=== PATIENT | female | born 1960 | race Caucasian/White ===

== ENCOUNTER 2018-01-02 13:57 | Inpatient (IN) ==
[2018-01-02] MEDS ORDERED: Aspirin 81 MG TAB.CHEW PO ONE (14:04)
[2018-01-02] MEDS ORDERED: *HR* Heparin 5,000 UNIT/ML VIAL ONE (14:07)
[2018-01-02] MEDS ORDERED: *HR* Heparin 5,000 UNIT/ML VIAL IVP PRN ×2 (14:07)
[2018-01-02] MEDS ORDERED: *HR* Heparin 5,000 UNIT/ML VIAL IVP ONE (14:07)
[2018-01-02] MEDS ORDERED: *HR* Ticagrelor 90 MG TABLET ONE (14:07)
[2018-01-02] MEDS ORDERED: Aspirin 81 MG TAB.CHEW ONE (14:07)
[2018-01-02] MEDS ORDERED: 0.9 % Sodium Chloride 1,000 ML ONE ×4 (14:07→17:31)
[2018-01-02] MEDS ORDERED: *HR* Ticagrelor 90 MG TABLET PO ONE (14:09)
--- NOTE | 2018-01-02 14:13 | Emergency Department Note ---
Disposition Clinical Impression: STEMI (ST elevation myocardial infarction) Qualifiers: Involved coronary artery: other inferior wall coronary artery Qualified Code(s) : I21.19 - ST elevation (STEMI) myocardial infarction involving other coronary artery of inferior wall Disposition: Admitted As Inpatient Condition: Good Chest Pain HPI - General Chief Complaint: ED Chest Pain Stated Complaint: STEMI from UC Time Seen by Provider: 01/02/18 14:04 Source: patient, family Limitations: no limitations Vital Signs Reviewed: Yes Nursing Notes Reviewed: Yes - History of Present Illness HPI Narrative: Patient presents today from urgent care. Patient was therefore evaluation of chest pain. Patient was diagnosed with STEMI. The patient refused transfer by squad. The patient's chest pain started last night. Describes a heaviness that is worse with deep inspiration. Chest pain is worse when she walks. Associated shortness of breath. Patient rates pain as 9 out of 10. Severity scale (1-10): 9 - Related Data Home Medications Medication Instructions Recorded Confirmed Aspirin 325 mg PO DAILY 01/02/18 01/02/18 Clopidogrel [Plavix] 75 mg PO DAILY 01/02/18 01/02/18 Cyclobenzaprine [Flexeril] 10 mg PO TID 01/02/18 01/02/18 Montelukast [Singulair] 10 mg PO DAILY 01/02/18 01/02/18 Oxycodone HCl/Acetaminophen 1 tab PO Q6H PRN 01/02/18 01/02/18 [Percocet 5-325 mg Tablet] Simvastatin [Zocor] 10 mg PO QPM 01/02/18 01/02/18 Bossman's Wort 1 tab PO DAILY 01/02/18 Allergies Allergy/AdvReac Type Severity Reaction Status Date / Time No Known Allergies Allergy Verified 01/02/18 13:01 Review of Systems: CONSTITUTIONAL: No weight loss, fever, chills, weakness or fatigue. HEENT: Eyes: No visual changes. . SKIN: No rash or itching. CARDIOVASCULAR: Chest pain and pressure RESPIRATORY: Shortness of breath GASTROINTESTINAL: Decreased appetite and nausea GENITOURINARY: No burning on urination or hematuria. NEUROLOGICAL: No headache, dizziness, syncope, MUSCULOSKELETAL: No back pain Chest Pain PMH - Past Medical History Medical history: Reports: asthma, COPD, hyperlipidemia - Social History Smoking Status: Current every day smoker Alcohol use: Reports: none Drug use: Reports: none Physical Exam General: Mild distress secondary to pain Head: Normocephalic Atraumatic Eyes: PERRL, EOMI ENT: Airway patent, no stridor Neck: supple, no meningismus Chest: Lungs clear to auscultation bilateral Cardiac: Regular rhythm Abdomen: soft, nontender, nondistended; no guarding, rebound, or tenderness to percussion Musculoskeletal: Calves symmetric, nontender, no palpable cord Skin: No rash, normal skin tone Neuro: Awake alert and appropriate. - General Limitations: no limitations General appearance: alert, in no apparent distress Course - Reevaluation(s) Reevaluation #1: Patient seen and evaluated at bedside medially upon arrival. Patient with ST elevation in 2 and aVF as well as V3 through V6. Depression in V2. We will discuss with interventionalists. - Consultations Consultation #1: STEMI alert called. Immediate call back by interventionalists. Discussed EKG changes. Aspirin are to be given. Berlinta and heparin will be given. Patient will be taken to [facility]. Vital Signs Temperature 98.6 F 01/02/18 13:59 Pulse Rate 119 01/02/18 13:59 Respiratory Rate 18 01/02/18 13:59 Blood Pressure 115/92 01/02/18 13:59 O2 Sat by Pulse Oximetry 95 01/02/18 13:59 Temperature 97.7 F 01/02/18 16:03 Pulse Rate 74 01/02/18 17:58 Respiratory Rate 12 01/02/18 17:58 Blood Pressure 102/73 01/02/18 17:58 O2 Sat by Pulse Oximetry 97 01/02/18 17:58 Oxygen Delivery Oxygen Delivery Room Air Chest Pain - Medical Records Medical records reviewed: Yes I reviewed the patient's medical records. - Lab Data Lab results reviewed: Yes I reviewed the patient's lab results. Result diagrams: 01/02/18 14:08 01/02/18 14:08 Lab Results 01/02/18 01/02/18 01/02/18 Range/Units 14:08 14:08 14:08 WBC 19.1 H (4.3-11.1) K/mcL RBC 4.13 (3.82-4.97) M/mcL Hgb 15.9 H (11.5-15.4) g/dL Hct 45.9 H (35.3-44.9) % MCV 111.1 H (83.0-100.0) fL MCH 38.5 H (28.0-33.3) pg MCHC 34.6 (31.6-35.5) g/dL RDW 16.0 H (11.5-14.5) % Plt Count 311 (140-400) K/mcL MPV 11.3 (9.4-12.4) fL Immature Gran % 0.8 (0-4) % Seg Neutrophils % 70.4 % Lymphocytes % 17.7 % Monocytes % 10.3 % Eosinophils % 0.2 % Basophils % 0.6 % Neutrophils # 13.5 H (1.6-8.9) K/mcL Lymphocytes # 3.4 (0.6-4.6) K/mcL Monocytes # 2.0 H (0.0-1.3) K/mcL Eosinophils # 0.0 (0.0-0.6) K/mcL Basophils # 0.1 (0.0-0.2) K/mcL Nucleated RBCs/100 WBC 0.1 H (0) /100 WBC Platelet Estimate Normal (Normal) Anisocytosis 1+ A (Not Present) Macrocytosis Present A (Not Present) PT 13.1 H (9.4-12.1) Seconds INR 1.2 APTT 26.6 (26.0-36.0) Seconds Sodium 135 L (136-145) mEq/L Potassium 3.6 (3.5-5.1) mEq/L Chloride 98 (98-107) mEq/L Carbon Dioxide 29 (23-29) mEq/L BUN 8 (6-20) mg/dL Creatinine 0.70 (0.60-1.20) mg/dL Est GFR ( Amer) > 60 (> 60) Est GFR (Non-Af Amer) > 60 (> 60) BUN/Creatinine Ratio 11 (6-26) Glucose 129 H (70-105) mg/dL Calculated Osmolality 280 (280-300) Calcium 9.9 (8.6-10.3) mg/dL Troponin I 4.25 H* (< 0.04) ng/mL - Radiology Data Radiology results reviewed: Yes I reviewed the patient's radiology results. - EKG Data EKG attestation: Yes I reviewed and interpreted this EKG. EKG results narrative: EKG with sinus rhythm and ST elevations to leads III and aVF of greater than [address] segment elevations V3 through V6 with T-wave depression in V 2.
[2018-01-02] MEDS ORDERED: Heparin 25,000 UNIT/500 ML D5W 25,000 UNIT/500 ML BAG IVC SCH (14:15)
[2018-01-02 14:25] LABS: Basophils # 0.1 K/mcL (0.0-0.2); Basophils % 0.6 %; Eosinophils % 0.2 %; Hematocrit 45.9 % (35.3-44.9); Hemoglobin 15.9 g/dL (11.5-15.4); Immature Granulocytes % 0.8 % (0-4); Lymphocytes # 3.4 K/mcL (0.6-4.6); Lymphocytes % 17.7 %; Mean Corpuscular HGB Conc 34.6 g/dL (31.6-35.5); Mean Corpuscular Hemoglobin 38.5 pg (28.0-33.3); Mean Corpuscular Volume 111.1 fL (83.0-100.0); Mean Platelet Volume 11.3 fL (9.4-12.4); Monocytes % 10.3 %; Neutrophils # 13.5 K/mcL (1.6-8.9); Nucleated Red Blood Cells 0.1 /100 WBC (0); Platelet Count 311 K/mcL (140-400); Red Blood Count 4.13 M/mcL (3.82-4.97); Segmented Neutrophils % 70.4 %
[2018-01-02] MEDS ORDERED: Nitroglycerin 1,000 MCG/10 ML VIAL IV ONE (14:31)
[2018-01-02] MEDS ORDERED: *HR* Heparin 10,000 UNIT/10 ML VIAL ONE (14:31)
[2018-01-02] MEDS ORDERED: *HR* Midazolam HCl 5 MG/5 ML VIAL IVP ONE (14:31)
[2018-01-02] MEDS ORDERED: ISOVUE-370 200 ML INFUS..BTL IV ONE (14:31)
[2018-01-02] MEDS ORDERED: Heparin 1,000 UNITS/500 mL 500 ML ONE (14:31)
[2018-01-02 14:37] LABS: INR 1.2; Prothrombin Time 13.1 Seconds (9.4-12.1)
[2018-01-02 14:40] LABS: Activated Partial Thrombo Time 26.6 Seconds (26.0-36.0)
[2018-01-02 14:43] LABS: Anisocytosis 1+ (Not Present); Macrocytosis Present (Not Present); Platelet Estimate Normal (Normal)
[2018-01-02 14:45] LABS: BUN/Creatinine Ratio 11 (6-26); Blood Urea Nitrogen 8 mg/dL (6-20); Calcium 9.9 mg/dL (8.6-10.3); Carbon Dioxide 29 mEq/L (23-29); Chloride 98 mEq/L (98-107); Glucose 129 mg/dL (70-105); Osmolality,Calculated 280 (280-300); Potassium 3.6 mEq/L (3.5-5.1); Sodium 135 mEq/L (136-145); eGFR For African Americans > 60 (> 60); eGFR For Non-African Americans > 60 (> 60)
--- NOTE | 2018-01-02 14:49 | Pre-Sedation Evaluation ---
Pre-sedation evaluation - Pre-sedation checklist Date of procedure: 01/02/18 Procedure: Left heart cath Recent Vitals: Last Vital Signs Temp 98.6 F 01/02/18 13:59 Pulse 98 01/02/18 14:24 Resp 18 01/02/18 14:43 BP 106/77 01/02/18 14:43 Pulse Ox 96 01/02/18 14:24 H&P (including ROS) documented in medical record: Yes Previous reaction to sedatives/anesthetics: No Dietary Status: No solid food in preceding 4 hrs and no liquid in preceding 2 hrs Airway Assessment: Patient can open mouth completely, TMJ function normal Dentition: No loose teeth or bridges Possible difficult airway: No ASA Classification *see protocol: CLASS IV-Severe systemic disease/constant threat to pt's life Plan of Care: Pt appropriate candidate for procedure/moderate/conscious sedation , Risks/benefits of procedure/sedation discussed w/ patient/family, If not NPO; Risk of intake outweiged by necessity to perform procedure Cardiac Registry (Cardio Only) - Functional Capacity Functional Capacity: >=4 METS without symptoms - Clincal Frailty Scale Clinical Frailty Scale: Well
[2018-01-02 14:52] LABS: Troponin I 4.25 ng/mL (< 0.04)
--- NOTE | 2018-01-02 14:55 | Cardiology History & Physical ---
Date of Encounter: 01/02/18 Time of Encounter: 14:50 Assessment and Plan (1) ST elevation myocardial infarction (STEMI) Current Visit: Yes Status: Acute The assessment and plan as outlined above was discussed with the patient and/or family members who expressed understanding and agreement. All questions were answered. PT has ongoing chest pain, EKG changes, recommend emergent LHC/poss, risks and benefits discussed, pt agrees to proceed. Qualifiers: Involved coronary artery: other inferior wall coronary artery Qualified Code(s): I21.19 - ST elevation (STEMI) myocardial infarction involving other coronary artery of inferior wall (2) COPD (chronic obstructive pulmonary disease) with emphysema Current Visit: Yes Status: Chronic The assessment and plan as outlined above was discussed with the patient and/or family members who expressed understanding and agreement. All questions were answered. Discussed smoking cessation, shortness of breath multifactorial, will consult pulmonary medicine for recs on breathing treatments. Qualifiers: Emphysema type: unspecified Qualified Code(s): J43.9 - Emphysema, unspecified (3) GERD (gastroesophageal reflux disease) Current Visit: Yes Status: Chronic The assessment and plan as outlined above was discussed with the patient and/or family members who expressed understanding and agreement. All questions were answered. Has presenting symptoms of GERD, add PPI, monitor for occult blood, GI consult Qualifiers: Esophagitis presence: esophagitis presence not specified Qualified Code(s) : K21.9 - Gastro-esophageal reflux disease without esophagitis (4) Anxiety as acute reaction to exceptional stress Current Visit: Yes Status: Acute The assessment and plan as outlined above was discussed with the patient and/or family members who expressed understanding and agreement. All questions were answered. PT is under extreem stress due to financial issues, family drama, would benefit from psych eval, outpatient counseling, stress management. History of Present Illness Chief complaint: chest pain HPI: Ms. Stock is a 57 year old female who initially presented to urgent care with complaint of sudden onset chest pain on 12/31/2017, felt like indigestion, described as heartburn, lasted 24 hours, unable to lie flat or sleep without epigastric burning becoming worse, finally seemed to resolve somewhat, but developed chest pressure on 01/01/18 8/10, associated with shortness of breath and mild diaphoresis which waxed and waned throughout the day, eased up enough for her to lie down but not sleep, become more severe again this am, now 8/10, associated with shortness of breath, sought care in , found to have acute EKG changes, sent to ER. Pt has recieved sl ntg with some temporary improvement in chest pain, but has now returned more severe. Past Med Surg Social Fam HX - Past Medical History Medical history: asthma, COPD, hyperlipidemia - Social History Smoking Status: Current every day smoker Smokeless Tobacco Status: No Alcohol use: none Drug use: none Medications and Allergies Aspirin 325 mg PO DAILY 01/02/18 [History] Clopidogrel [Plavix] 75 mg PO DAILY 01/02/18 [History] Cyclobenzaprine [Flexeril] 10 mg PO TID 01/02/18 [History] Montelukast [Singulair] 10 mg PO DAILY 01/02/18 [History] Oxycodone HCl/Acetaminophen [Percocet 5-325 mg Tablet] 1 tab PO Q6H PRN [History] Simvastatin [Zocor] 10 mg PO QPM 01/02/18 [History] Bossman's Wort 1 tab PO DAILY 01/02/18 [History] 3 Allergy/AdvReac Type Severity Reaction Status Date / Time No Known Allergies Allergy Verified 01/02/18 13:01 All Systems Review: The remainder of the systems were reviewed and are negative - Constitutional Constitutional: fatigue, headache(s) - EENT Nose, mouth and throat: dysphagia - Cardiovascular Cardiovascular: chest pain at rest, chest pain with exertion, dyspnea at rest - Respiratory Respiratory: cough - Gastrointestinal Gastrointestinal: abdominal pain - Musculoskeletal Musculoskeletal: arthralgias, back pain Physical Examination Vital Signs, Last 4 Hours Resp BP 01/02/18 14:43 18 106/77 General: Conversant, Other (moderate distess with ongoing chest pain) HEENT: Atraumatic, Normocephaly Neck: No JVD, Normal carotid pulses, Other (well healed right CEA scar, soft 1/ 6 carotid bruit) Cardiac: Normal S1 and S2 Lungs: Other (decreased breath sounds, end expiratory wheezes.) Neuro: Alert and responsive, No focal deficits noted Abdomen: Soft, Other (mild epigastric tenderness to light palpation, no rebound. ) Skin: No rashes noted on visualized skin Musculoskeletal: No Chest Wall Tenderness Extremities: No Clubbing, No Cyanosis, No Edema, Normal Pulses Results 01/02/18 14:08 01/02/18 14:08 - EKG Interpretation EKG results cardiology: personally reviewed
--- NOTE | 2018-01-02 15:45 | Invasive Diagnostic Lab Proc ---
Name: Susan Stock Date of Study: 01/02/2018 Date: 1960 Ht: 63.0in Medical Record#: [id number] Age: 57 Wt: 99.21lb Gender: Female BSA: 1.44 Order #: [id number] BMI: 17.58 Physicians Procedure Physician: Yoshi Thurman DO Referring MD: Jason Witt MD Referring MD: Staff Name Position Time In Yonathan Benson RN [employer] 02:49 PM Jyothi Patterson RT (R) Scrub 02:49 PM Aden Yeung RN [employer] 02:49 PM Indications Indication STEMI Procedures Performed Procedure L HRT ARTERY/VENTRICLE ANGIO Pre-Procedure Checklist Informed consent is complete signed and on chart. H&P is on chart. ID band is on and ID verified with patient. Pt not NPO for procedure and MD aware. The procedure was described for the patient and questions were answered. Blood Pressure: 109/77 ECG is on chart. Rhythm: NSR Plan of Care Patient will tolerate the procedure without complications. Adequate level of comfort will be maintained. Hemodynamics will remain stable Patient will recover from procedure without complications. Respiratory function will be maintained. Cardiac rhythm will remain stable. Patient temperature will be maintained. Patient and/or family have verbalized understanding of the procedure. Patient Education Chief Complaint/Reason for Test: Cardiac Cath Developmental Category: Adult (18-64 years) Developmentally Appropriate for Age: Yes Learning Barriers: Sedated Education Needs: Procedure Education Method: Verbal Information Taught: Cardiac Cath Educational Evaluation: Able to repeat information Intravenous Access Time IV Size Location DC'd Fluid/Drip Rate Units RN 02:42 PM 20g 1 1/4" Patent On Arrival Lt Antecubital 0.9NaCl 25 ml/hr Yonathan Benson RN 02:42 PM 18g 1 1/4" Patent On Arrival Rt Antecubital Yonathan Benson RN Allergies No Known Allergies No Known Drug Allergies - Nkda Vital Signs Time BP (mmHg) HR (bpm) O2 Sat. RR (bpm) LOC 02:41 PM 109 / 77 98 96 % 16 5 = Fully awake and oriented or at pre-proc level 02:51 PM / % 5 = Fully awake and oriented or at pre-proc level 02:51 PM / % 4 = Oriented but drowsy 02:48 PM 103 / 71 96 97 % 02:53 PM 114 / 78 90 96 % 02:58 PM 105 / 72 97 97 % 03:03 PM 104 / 69 89 96 % 03:08 PM 104 / 66 85 97 % 03:13 PM 118 / 71 84 98 % Procedural Medications Time Medication Dose Units Method Given By 02:53 PM Versed 1 mg Intravenous Yonathan Benson RN 02:54 PM Oxygen 2 L/min nasal cannula Yonathan Benson RN 02:58 PM Versed 1 mg Intravenous Yonathan Benson RN 02:59 PM Lidocaine 2% 10 ml Subcutaneous Yoshi Thurman DO ASA Classification: Emergent Procedure: ASA score is assumed Olivia Score Preprocedure Postprocedure Activity 2- Moves 4 extremities sustained head lift Activity Circulation 2- SBP +/= 20 points of pre-anesthetic level Circulation Consciousness 2- Awake and alert oriented x 3 Consciousness O2 Saturation 2- Able to maintain O2 satruation of 92% on room air O2 Saturation Respiratory 2- Able to deep breathe and cough well Respiratory Total Score 10 Total Score Contrast Agent: Isovue Diagnostic Contrast: 45 ml Total Contrast: 45 ml Fluoro Dose: 1360 mGy Activated Clotting Time Time Seconds to Clot 03:10 PM 173 Procedure Log Time Note Enter By 02:48 PM Vitals capture started with the following parameters, Patient=Adult, Interval=5 min, Initial Jynlptou=795 mmHg, Deflation Rate=5 mmHg, Cuff placed on Right Arm 02:48 PM CathStat 02:48 PM Case Start 02:48 PM HR=96 bpm, PHVY=521/71 mmhg, SpO2=97.0 % 02:49 PM Pt arrived to tutorial laboratory supervisor 2 at 14:49 csmith 02:49 PM Yonathan Benson RN Position: [employer] Principal Time in: 14:49 csmith 02:49 PM Jyothi Patterson RT (R) Position: Scrub Time in: 14:49 csmith 02:49 PM Aden Yeung RN Position: [employer] Principal Time in: 14:49 csmith 02:49 PM Patient charges- Angio tray pack, Navilyst 3mm J, Pulse Oximetry and ACIST tubing and transducer csmith 02:49 PM IV Supplies used: J loop Angio Cath. csmith 02:49 PM Hair removed from procedure site in procedure lab using clippers. Bilateral groin prepped with Chloraprep by Jyothi Patterson RT (R), then patient was draped. Skin intact. csmith 02:49 PM Physician arrived 14:49 csmith 02:49 PM Meet and jenniffer completed csmith 02:49 PM Sign in performed according to hospital policy. csmith 02:49 PM Procedure start 14:49 csmith 02:50 PM Recorded ECG: HR=92 Condition=Condition 1 02:51 PM Time: 14:51 Patient comfortable and pain free: No csmith 02:51 PM Time: 14:51LOC: 5 = Fully awake and oriented or at pre-proc level csmith 02:51 PM STEMI from ER 8 out of 10 chest pain currently csmith 02:53 PM Time: 14:53 Versed 1 mg Intravenous Given by Yonathan Benson RN csmith 02:53 PM HR=90 bpm, UNKW=655/78 mmhg, SpO2=96.0 %, Comment=NSR 02:54 PM Time: 14:54 Oxygen on at 2 L/min per nasal cannula by Yonathan Benson RN csmith 02:57 PM Pressure channel 2 zeroed. 02:58 PM Time: 14:58 Versed 1 mg Intravenous Given by Yonathan Benson RN csmith 02:58 PM HR=97 bpm, ESHT=211/72 mmhg, SpO2=97.0 %, Comment=NSR 02:59 PM Clinical Presentation: STEMI or equivalent csmith 02:59 PM Time out performed according to hospital policy csmith 02:59 PM Time: 14:59 10 ml Lidocaine 2% to right groin Subcutaneous Given by Yoshi Thurman DO csmith 03:00 PM Micro-Introducer Kit utilized for sheath placement csmith 03:03 PM Access obtained by percutaneous puncture. 6Fr 10cm Terumo Holcombe sheath placed in right Femoral artery. [id number] csmith 03:03 PM HR=89 bpm, ORWV=934/69 mmhg, SpO2=96.0 %, Comment=NSR 03:04 PM 6Fr FR 4 catheter inserted over the wire DNC csmith 03:04 PM Recorded Pressure: LV, HR=88, Condition=Condition 1 (Left Ventricle) LV 77/2/7 03:05 PM Recorded Pressure: LV, Ao, HR=82, Condition=Condition 1 (Left Ventricle) LV 94/2/9, (Aorta) Ao 94/43/68 03:05 PM Catheter selectively placed in left ventricle csmith 03:05 PM Bolus angiogram of left Ventricle complete: hand injection csmith 03:05 PM RCA angiography performed in multiple views. csmith 03:05 PM Recorded Pressure: Ao, HR=88, Condition=Condition 1 (Aorta) Ao 99/53/72 03:06 PM Time: 14:51 Patient comfortable and pain free: No csmith 03:06 PM Time: 14:51LOC: 4 = Oriented but drowsy csmith 03:06 PM 0.035 145cm Navilyst 3mmJ wire [id number] csmith 03:06 PM Catheter removed csmith 03:07 PM 6Fr JL4 Runway guide catheter was used to cannulate the PCI vessel successfully. reused? No csmith 03:07 PM LCA angiography performed in multiple views. csmith 03:08 PM HR=85 bpm, CEEL=473/66 mmhg, SpO2=97.0 %, Comment=NSR 03:09 PM Guide catheter removed intact. csmith 03:10 PM At 15:10 the ACT was 173 seconds. csmith 03:12 PM Angiogram performed of right femoral artery csmith 03:13 PM HR=84 bpm, ZBIN=620/71 mmhg, SpO2=98 % 03:15 PM Lesion found in Mid RCA. Pre Stenosis: 40 Pre NIURKA Flow: csmith 03:15 PM Lesion found in Proximal Circumflex. Pre Stenosis: 30 Pre NIURKA Flow: csmith 03:16 PM Procedure completed at 15:16 01/02/2018 csmith 03:16 PM Did you address NIURKA flow and Dominance? Yes csmith 03:17 PM Sign out completed: Radiation Dose 101.38 mGy, 1360.22 cGy/cm2 Fluoro Time: 1.1 Isovue 370 - 200ml contrast 45 ml given by Yoshi Thurman DO. Complications: NoneCardiac Rehab Consult needed: NoConfirmed administered medications: Yes csmith 03:17 PM Isovue 370 - 200ml,1 Bottle(s) used. csmith 03:17 PM Sheath left in place to be pulled on floor/holding areaV+Pad csmith 03:17 PM Estimated Blood Loss: minimal csmith 03:17 PM Post ECG NSR csmith 03:17 PM Post Blood Pressure 118/71 csmith 03:17 PM Information taught Cardiac Cath csmith 03:18 PM Education needs Procedure, Plan of Care, Disease Process, and Responsibilities of Patient in Care csmith 03:18 PM Learning barriers :None csmith 03:18 PM Education evaluation Able to repeat information csmith 03:18 PM Site status No bleeding/hematoma - Rt Groin as reported by Jyothi Patterson RT (R) at 15:18 csmith 03:18 PM Opsite applied csmith 03:18 PM Plavix, Effient or Brilinta given Yes csmith 03:18 PM Chest pain rated at a 7 out of 10 currently csmith 03:25 PM Patient out of room: 15:25 csmith 03:25 PM Family placed in consult room. csmith 03:25 PM Complications: None csmith 03:26 PM Report given to Cherie GALDAMEZ Pt taken to ICU Room #5. 15:25 csmith 03:26 PM Fluoro Time: 1.1 csmith 03:26 PM Isovue 370 - 200ml contrast [address] Thurman. csmith 03:27 PM Radiation Dose 101.38 mGy [facility] Complications Complication None None Hemodynamics Pressures Site Systolic/A Wave Diastolic/V Wave Mean LV 77 2 7 LV 94 2 9 AO 94 43 68 AO 99 53 72 Post Procedure Information Blood Pressure: 118/71 mmHg Rhythm: NSR Post procedural instructions were given Closure Device Time Device Success/Fail 01/02/2018 3:27:00 PM Manual Compression Site Checks Time Location Status Staff Sheath In? Note 03:18 PM Rt Groin No bleeding/hematoma Jyothi Patterson RT (R) Pulses Time Site Pre-Procedure Post-Procedure Note 01/02/2018 2:41:00 PM Updated by Yonathan Benson RN on 01/02/2018 3:37:53 PM electronically signed on 01/02/2018 3:39:17 PM with status of Final
[2018-01-02] MEDS ORDERED: *HR* Atropine Sulfate 1 MG/10 ML SYRINGE ONE (17:31)
[2018-01-02] MEDS: *HR* OxyCODONE/APAP 5/325 TABLET PO PRN (19:12)
[2018-01-03] MEDS: *HR* OxyCODONE/APAP 5/325 TABLET PO PRN ×4 (01:15→20:37)
--- NOTE | 2018-01-03 07:50 | Pulmonology Consult Note ---
<Jovanny Richards M - Last Filed: 01/03/18 10:14> Date of Encounter: 01/03/18 Medications and Allergies Aspirin 325 mg PO DAILY 01/02/18 [History] Clopidogrel [Plavix] 75 mg PO DAILY 01/02/18 [History] Cyclobenzaprine [Flexeril] 10 mg PO TID 01/02/18 [History] Montelukast [Singulair] 10 mg PO DAILY 01/02/18 [History] Oxycodone HCl/Acetaminophen [Percocet 5-325 mg Tablet] 1 tab PO Q6H PRN [History] Simvastatin [Zocor] 10 mg PO QPM 01/02/18 [History] Bossman's Wort 1 tab PO DAILY 01/02/18 [History] 3 Allergy/AdvReac Type Severity Reaction Status Date / Time No Known Allergies Allergy Verified 01/02/18 13:01 All Systems: The remainder of the systems were reviewed and are negative Physical Examination Vital Signs: Vital Signs, Last 4 Hours Temp Pulse Resp BP Pulse Ox 01/03/18 08:00 82 15 112/72 93 01/03/18 07:00 98.4 F 75 13 107/65 94 01/03/18 06:00 82 10 81/67 97 Results - Laboratory Findings CBC and BMP: 01/02/18 14:08 01/02/18 14:08 PT/INR, D-dimer PT 13.1 Seconds (9.4-12.1) H 01/02/18 14:08 Abnormal lab findings: Abnormal lab results WBC 19.1 K/mcL (4.3-11.1) H 01/02/18 14:08 Hgb 15.9 g/dL (11.5-15.4) H 01/02/18 14:08 Hct 45.9 % (35.3-44.9) H 01/02/18 14:08 MCV 111.1 fL (83.0-100.0) H 01/02/18 14:08 MCH 38.5 pg (28.0-33.3) H 01/02/18 14:08 RDW 16.0 % (11.5-14.5) H 01/02/18 14:08 Neutrophils # 13.5 K/mcL (1.6-8.9) H 01/02/18 14:08 Monocytes # 2.0 K/mcL (0.0-1.3) H 01/02/18 14:08 Nucleated RBCs/100 WBC 0.1 /100 WBC (0) H 01/02/18 14:08 Anisocytosis 1+ (Not Present) A 01/02/18 14:08 Macrocytosis Present (Not Present) A 01/02/18 14:08 PT 13.1 Seconds (9.4-12.1) H 01/02/18 14:08 Sodium 135 mEq/L (136-145) L 01/02/18 14:08 Glucose 129 mg/dL (70-105) H 01/02/18 14:08 Troponin I 4.25 ng/mL (< 0.04) H* 01/02/18 14:08 - Clinical Findings Intake & Output: Intake & Output 01/02/18 01/03/18 01/03/18 23:59 07:59 15:59 Intake Total 200 / 200 Output Total 1000 / 1000 Balance -1000 / -1000 200 / 200 Weight 45.5 kg Consult Discharge Plan - Plan Referrals: Jason Witt MD [Primary Care Provider] - - Attending Attestation I examined this patient and my medical decision-making was reviewed with the Resident Physician. I agree with the documented findings, disposition and treatment plan as described except to the extent set forth below. Patient seen and examined. Labs, radiology, chart personally reviewed. Agree with resident's history and physical, assessment, plan with following comments: OFFAL SEPARATOR: Patient follows commands, Pulmonary: Acceptable oxygenation and ventilation, however. Restart inhalers and advised her to quit smoking. Cardiovascular: stable and cardiology is following up. GI: Nutrition per dietary and GI prophylaxis per routine Heme: DVT prophylaxis per routine ID: No evidence of infection. Renal; urine out put and renal funtion reviewed Endorcine: blood glucose is monitored Lines: all lines checked and no evidence of infections Skin: skin care to prevent pressure ulcers per nursing routine care <Leonel Small - Last Filed: 01/03/18 14:24> Date of Encounter: 01/03/18 Time of Encounter: 07:50 Assessment and Plan (1) ST elevation myocardial infarction (STEMI) Current Visit: Yes Status: Ruled-out Patient was found to have ST elevations on EKG at urgent care as well as an emergency department Underwent left heart catheterization, no intervention. Findings consistent with takotsubo cardiomyopathy Echo revealed ejection fraction of 60-65%. Home aspirin and Plavix continued Holding antihypertensives due to hypotension. Continue to monitor. Qualifiers: Involved coronary artery: other inferior wall coronary artery Qualified Code(s): I21.19 - ST elevation (STEMI) myocardial infarction involving other coronary artery of inferior wall (2) Takotsubo cardiomyopathy Current Visit: Yes Status: Acute Cardiac catheterization findings consistent with takotsubo cardiomyopathy Echo reveals ejection fraction of 60-65%. Continue to monitor and follow cardiology recommendations. (3) COPD (chronic obstructive pulmonary disease) with emphysema Current Visit: Yes Status: Chronic Patient has a 45 year smoking history On Ventolin inhaler at home Added Symbicort and DuoNeb nebs as needed Qualifiers: Emphysema type: unspecified Qualified Code(s): J43.9 - Emphysema, unspecified (4) Hypotension Current Visit: Yes Status: Acute Patient has blood pressure readings of approximately 80/50 while in the ICU She is currently asymptomatic and heart rate is normal Follow cardiology recommendations regarding fluids. Qualifiers: Hypotension type: unspecified hypotension type Qualified Code(s): I95.9 - Hypotension, unspecified (5) Anxiety as acute reaction to exceptional stress Current Visit: Yes Status: Acute Currently not on any antianxiety medications Follow up with psychiatry recommendations History of Present Illness Consult date: 01/03/18 Requesting physician: Yoshi Thurman Reason for consult: chest pain (Takotsubo cardiomyopathy) Chief complaint: Chest pain History of present illness: Ms. Stock is a 57-year-old female with a 45 year smoking history and a prior stroke who experienced acute chest pain approximately 3 days ago. She states that the chest pain waxed and waned until yesterday the pain worsened and became severe prompting her to visit an urgent care center where an EKG revealed ST elevations and a troponin of 4.25 was recorded. She was immediately sent to the ER for left heart cardiac catheterization. Significant stenosis was not found and the patient was diagnosed with takutsobu cardiomyopathy. She underwent an echo today which revealed an ejection fraction of 60-65%. Patient denies any complaints today, she states that her chest pain is improved and she is not having any shortness of breath. Past Med Surg Social Fam HX - Past Medical History Medical history: asthma, COPD, hyperlipidemia Psychiatric history: anxiety, depression - Past Surgical History Surgical History: appendectomy, carotid endarterectomy - Social History Smoking Status: Current every day smoker Packs per day: 2 pks/day Smokeless Tobacco Status: No Alcohol use: none Drug use: none All Systems: The remainder of the systems were reviewed and are negative - Constitutional Constitutional: no chills, no fever(s) - Cardiovascular Cardiovascular: no chest pain, no dyspnea, no palpitations - Respiratory Respiratory: no cough, no dyspnea - Gastrointestinal Gastrointestinal: no abdominal pain, no diarrhea, no nausea, no vomiting - Psychiatric Psychiatric: anxiety Physical Examination Vital Signs: Vital Signs, Last 4 Hours Pulse Resp BP Pulse Ox 01/03/18 06:00 82 10 81/67 97 01/03/18 05:00 70 12 87/61 96 01/03/18 04:00 72 12 97/70 96 General appearance: no acute distress Eyes: nonicteric Neck: other (Scar right side from previous carotid endarterectomy) Effort: normal Inspection: normal Auscultation: bilateral: clear Cardiovascular: regular rate and rhythm Gastrointestinal: normoactive bowel sounds, soft, non-tender, non-distended Integumentary: normal Extremities: no cyanosis Musculoskeletal: no deformities normal mental status, non-focal exam mood appropriate Results - Laboratory Findings CBC and BMP: 01/02/18 14:08 01/02/18 14:08 PT/INR, D-dimer PT 13.1 Seconds (9.4-12.1) H 01/02/18 14:08 Abnormal lab findings: Abnormal lab results WBC 19.1 K/mcL (4.3-11.1) H 01/02/18 14:08 Hgb 15.9 g/dL (11.5-15.4) H 01/02/18 14:08 Hct 45.9 % (35.3-44.9) H 01/02/18 14:08 MCV 111.1 fL (83.0-100.0) H 01/02/18 14:08 MCH 38.5 pg (28.0-33.3) H 01/02/18 14:08 RDW 16.0 % (11.5-14.5) H 01/02/18 14:08 Neutrophils # 13.5 K/mcL (1.6-8.9) H 01/02/18 14:08 Monocytes # 2.0 K/mcL (0.0-1.3) H 01/02/18 14:08 Nucleated RBCs/100 WBC 0.1 /100 WBC (0) H 01/02/18 14:08 Anisocytosis 1+ (Not Present) A 01/02/18 14:08 Macrocytosis Present (Not Present) A 01/02/18 14:08 PT 13.1 Seconds (9.4-12.1) H 01/02/18 14:08 Sodium 135 mEq/L (136-145) L 01/02/18 14:08 Glucose 129 mg/dL (70-105) H 01/02/18 14:08 Troponin I 4.25 ng/mL (< 0.04) H* 01/02/18 14:08 - Diagnostic Findings Chest x-ray: report reviewed, image reviewed - Clinical Findings Intake & Output: Intake & Output 01/02/18 01/02/18 01/03/18 15:59 23:59 07:59 Intake Total 50 / 50 Output Total 1000 / 1000 Balance -1000 / -1000 Weight 45.5 kg
[2018-01-03] MEDS: Budesonide/Formoterol 160/4.5 MDI IH SCH ×2 (10:47→21:26)
[2018-01-03] MEDS ORDERED: Ipratropium/Albuterol Neb 3 ML IH PRN (11:20)
[2018-01-03] MEDS ORDERED: Aspirin 81 MG TAB.CHEW PO SCH (11:30)
[2018-01-03] MEDS ORDERED: *HR* Ticagrelor 90 MG TABLET PO SCH (11:30)
--- NOTE | 2018-01-03 12:51 | Cardiology Progress Note ---
Date of Encounter: 01/03/18 Time of Encounter: 12:49 Assessment and Plan (1) ST elevation myocardial infarction (STEMI) Current Visit: Yes Status: Ruled-out EKG with concern for STEMI. C with no intervention--STEMI ruled out. Final report pending. Reportedly findings were consistent with Takotsubo CMP. TTE pending. Peak troponin 4.25. Recommend continue DAPT (ASA and Plavix), both home meds. No BB due to hypotension. Right femoral access site healing well. No bleeding, hematoma or ecchymosis noted. Will keep in ICU given hypotension. Currently asymptomatic and not on pressors. Qualifiers: Involved coronary artery: other inferior wall coronary artery Qualified Code(s): I21.19 - ST elevation (STEMI) myocardial infarction involving other coronary artery of inferior wall (2) Takotsubo cardiomyopathy Current Visit: Yes Status: Acute Per Dr. Thurman, [facility] consistent with Takotsubo CMP. TTE pending. BP will currently not tolerate BB or ACEi. (3) Hypotension Current Visit: Yes Status: Acute Currently hypotensive, asymptomatic. Not requiring pressors at this time. Need to be cautious with IV fluids given CMP on [facility]. TTE pending. Appreciate recs from critical care team. Qualifiers: Hypotension type: unspecified hypotension type Qualified Code(s): I95.9 - Hypotension, unspecified Discussion w patient/family: The assessment and plan as outlined above was discussed with the patient and/or family members who expressed understanding and agreement. All questions were answered. Thank you for involving us in the care of your patient. Please call with any questions. I will discuss all the above with Dr. Vasquez and make changes as necessary. Subjective Principal diagnosis: Takotsubo CMP Interval history: [facility] yesterday for EKG changes concerning for STEMI. Final report pending. Reportedly no intervention, findings consistent with takotsubo CMP. Pt denies chest pain or dyspnea. Hypotensive, but asymptomatic. TTE pending. Peak troponin 4.25. Objective Vital Signs, Last 4 Hours Temp Pulse Resp BP Pulse Ox 01/03/18 12:04 98.0 F 01/03/18 11:00 87 15 78/53 97 01/03/18 10:48 15 97 01/03/18 10:00 72 15 79/49 95 01/03/18 09:00 75 15 82/61 97 Vital Signs Temp Pulse Pulse Resp BP Pulse Ox 01/03/18 12:04 98.0 F 01/03/18 11:00 87 15 78/53 97 01/03/18 10:48 15 97 01/03/18 10:00 72 15 79/49 95 01/03/18 09:00 75 15 82/61 97 01/03/18 08:00 82 15 112/72 93 01/03/18 07:00 98.4 F 75 13 107/65 94 01/03/18 06:00 82 10 81/67 97 01/03/18 05:00 70 12 87/61 96 01/03/18 04:00 72 12 97/70 96 01/03/18 03:00 72 12 83/51 97 01/03/18 02:00 86 14 125/80 94 01/03/18 01:00 80 16 131/78 95 01/03/18 00:35 98.1 F 01/03/18 00:00 80 16 97/71 96 01/02/18 23:00 92 10 140/86 96 01/02/18 22:00 90 10 102/70 98 01/02/18 21:00 88 12 100/67 96 01/02/18 20:00 80 10 95/66 98 01/02/18 19:05 88 12 118/68 97 01/02/18 17:58 74 12 102/73 97 01/02/18 17:05 71 12 87/58 97 01/02/18 16:05 82 12 107/71 97 01/02/18 16:03 97.7 F 78 88 14 98/76 95 01/02/18 15:45 97.7 F 87 12 109/70 97 01/02/18 14:43 18 106/77 01/02/18 14:24 98 18 109/77 96 01/02/18 13:59 98.6 F 119 18 115/92 95 Intake and Output 01/02/18 01/03/18 01/03/18 23:59 07:59 15:59 Intake Total 200 / 200 Output Total 1000 / 1000 Balance -1000 / -1000 200 / 200 Intake: Oral 200 / 200 Output: Urine 1000 / 1000 Other: Meal Breakfast Percent of Meal Consumed 80% Stool Size Moderate Stool Consistency soft formed Stool Characteristics Normal for Patient Stool Color Brown # Voids 1 # Bowel Movements 1 Weight 45.5 kg Patient Weight 01/03/18 23:59 Weight 45.5 kg General: Conversant, No Apparent Distress HEENT: Atraumatic, Normocephaly, Mucus Membranes Moist Neck: No JVD, Normal carotid pulses Cardiac: Reg Rate and Rhythm, Normal S1 and S2, No Murmur Lungs: Normal Breath Sounds, No Wheeze, Rales, Rhonchi Neuro: Alert and responsive, No focal deficits noted Abdomen: Soft, Non-Tender Skin: Other (right femoral access site healing well. No bleeding, hematoma or ecchymosis noted.) Musculoskeletal: No Chest Wall Tenderness Extremities: No Clubbing, No Cyanosis, No Edema, Normal Pulses Results 01/02/18 14:08 01/02/18 14:08 Short CBC 01/02/18 Range/Units 14:08 WBC 19.1 H (4.3-11.1) K/mcL Hgb 15.9 H (11.5-15.4) g/dL Hct 45.9 H (35.3-44.9) % Plt Count 311 (140-400) K/mcL Neutrophils # 13.5 H (1.6-8.9) K/mcL BMP 01/02/18 Range/Units 14:08 Sodium 135 L (136-145) mEq/L Potassium 3.6 (3.5-5.1) mEq/L Chloride 98 (98-107) mEq/L Carbon Dioxide 29 (23-29) mEq/L BUN 8 (6-20) mg/dL Creatinine 0.70 (0.60-1.20) mg/dL Glucose 129 H (70-105) mg/dL Calcium 9.9 (8.6-10.3) mg/dL Cardiac Enzymes 01/02/18 Range/Units 14:08 Troponin I 4.25 H* (< 0.04) ng/mL Impressions Chest X-Ray 01/02/18 14:04 IMPRESSION: Linear infiltrates at the lung bases most likely representing subsegmental atelectasis. Otherwise, no acute abnormalities seen in the chest D/ / Uriel Meehan MD / Uriel Meehan MD Interpreting Provider: Uriel Meehan MD Active Medications Albuterol/Ipratropium (Duoneb) 3 ml IH [id number] PRN PRN Reason: Shortness Of Breath/Wheezing Stop: 07/05/18 11:21 Aspirin (Aspirin) 81 mg PO DAILY [facility] Stop: 07/05/18 11:31 Budesonide/Formoterol Fumarate (Symbicort) 1 puff IH BIDR JUAN PRN Reason: Protocol Stop: 07/05/18 10:01 Last Admin: 01/03/18 10:47 Dose: 1 puff Clopidogrel Bisulfate (Plavix) 75 mg PO DAILY [facility] Stop: 07/05/18 12:31 Cyclobenzaprine HCl (Flexeril) 10 mg PO HS PRN PRN Reason: Muscle Spasm Stop: 07/05/18 00:12 Last Admin: 01/03/18 01:15 Dose: 10 mg Heparin Sodium (Porcine) (Heparin) 5,000 unit SQ Q12HCO [facility] Stop: 07/05/18 11:31 Oxycodone/Acetaminophen (Percocet 5/325) 1 each PO Q6HR PRN PRN Reason: Pain Stop: 07/04/18 18:54 Last Admin: 01/03/18 07:42 Dose: 1 each - Imaging and Cardiology Echo: pending - EKG Interpretation EKG results cardiology: other (12 hr tele AVG HR 80, SR, no significant pauses or arrhythmias) Consult Discharge Plan - Plan Referrals: Jason Witt MD [Primary Care Provider] -
[2018-01-03] MEDS: *HR* Heparin 5,000 UNIT/ML VIAL SQ SCH ×2 (13:39→20:19)
[2018-01-03] MEDS: Nicotine 21 MG PATCH.TD24 TD SCH (15:38)
--- NOTE | 2018-01-03 18:47 | Consult Note ---
Date of Encounter: 01/03/18 Time of Encounter: 17:30 Assessment & Recommendation (1) Adjustment disorder with depressed mood Current visit: Yes Status: Acute History of Present Illness Patient: new to practice Requesting Physician: Yoshi Thurman DO Reason for consult: The patient was felt to have been agitated during the procedure History of present illness: Ms. Stock is a 57 year old female The patient is a 57-year-old white female. She is seen in the ICU. Chief complaint my sister has been doing all sorts of bad things to me. History of present illness:. The patient was in her usual state of health and mood however her mother in June. This left her father who has Alzheimer 's disease in the care of 2 daughters. The mother had been the core analyst. The patient and her sister signed up for [employer] guardianship. However her sister cashed in $100,000 worth of CDs in the father's name. This was supposed to be paid for a $10,000 . The patient sought her ip attorney and has not been embroiled in legal issues ever since. These include the misappropriation of funds the also claims of deception on family members and efforts to provoke the patient into confrontation. The patient no longer has her job and has no insurance for her healthcare. She has had medical problems for The patient's past psychiatric history reveals that she was in counseling in 1975 after she lost her son she participated in counseling the sessions were helpful. Efforts to treat her with antidepressants were not well tolerated she developed severe nausea. She has not tolerated SSRIs. The patient is placed or self on Isidro's wort. This is a plant that has antidepressant properties and the extract or herbal pill can be used as an antidepressant. Most notably it has interactions with other antidepressants and also may thin the blood. Past medical history:. Surgery right carotid endarterectomy, laparoscopy. Currently the patient is diagnosed with a form of Court congestive heart failure. But she has no prior history of heart disease. NKDA but bad reactions to antibiotics. She is currently on Singulair and Flexeril Percocet Plavix aspirin simvastatin. Family history is significant for father with Alzheimer's disease a son with depression. 2 grandfathers were reported to have trouble with alcohol and one sister a problem with drugs including Valium marijuana and acid. 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 She has been able to live in her home with her 12-year-old son at times her dad comes over but sometimes gets agitated. Her son moved in but now has some legal problems instituted by the sister. Review of systems was significant for low mood and low concentration difficulty with anxiety irritability. The most appropriate diagnosis is F 43.21 adjustment disorder with depressed mood. The patient has stressors beginning in the last 6 months. Her agitation and difficulty with the procedure is a reflection of the ongoing stress and including the current medical condition. CC: Yoshi Thurman, DO Past Med Surg Social Fam HX - Past Medical History Source: patient Medical history: asthma, COPD, hyperlipidemia - Past Psychiatric History Psychiatric history: Reports: anxiety Family psychiatric history: Yes Family History of Suicide: None - Past Surgical History Surgical History: appendectomy, carotid endarterectomy - Social History Smoking Status: Current every day smoker Smokeless Tobacco Status: No Alcohol use: none Drug use: none Occupational status: previously employed Current living situation: Home - Independent Activity Level: Independent ambulation Recent Out of Country Travel Within the Last 8 Weeks: No Exposure or Possible Exposure to Illness During Travel: No Medications & Allergies Aspirin 325 mg PO DAILY 01/02/18 [History] Clopidogrel [Plavix] 75 mg PO DAILY 01/02/18 [History] Cyclobenzaprine [Flexeril] 10 mg PO TID 01/02/18 [History] Montelukast [Singulair] 10 mg PO DAILY 01/02/18 [History] Oxycodone HCl/Acetaminophen [Percocet 5-325 mg Tablet] 1 tab PO Q6H PRN [History] Simvastatin [Zocor] 10 mg PO QPM 01/02/18 [History] Bossman's Wort 1 tab PO DAILY 01/02/18 [History] 3 Allergy/AdvReac Type Severity Reaction Status Date / Time No Known Allergies Allergy Verified 01/02/18 13:01 Review of Systems Psychiatric: Reports: irritability Psychiatry Exam - Constitutional Vitals: Temp Pulse Resp BP Pulse Ox 98.1 F 72 22 101/65 94 01/03/18 15:56 01/03/18 15:00 01/03/18 13:00 01/03/18 13:00 01/03/18 15:00 General appearance: age & developmentally appropriate, well-groomed, thin - Musculoskeletal Gait: slow Station: relaxed Strength & Tone: mild weakness - Psychiatric Patient Orientation: Yes Person, Yes Time, Yes Place Level of alertness: Alert Behavior: calm, cooperative Psychomotor activity: Normal Eye Contact: Maintains Eye Contact Mood Description: Depressed, Irritable Affect description: congruent with mood, full range, tearful Speech Volume: Soft/Quiet Speech pattern: normal rate, normal rhythm, normal tone, fluent, spontaneous Language & Vocabulary: consistent with education Thought Process: Linear, Goal Oriented Thought Content: No Suicidal ideation, No Homicidal ideation, No Overt delusions Perceptual Disturbances: No Auditory hallucinations, No Visual hallucinations Attention Span Ability: Capable of Focused Attention Memory Description: Grossly Intact Patient Reliability: Reliable Historian Fund of knowledge: Yes abstraction ability, Yes aware of current events Intelligence Estimate: Above [place] Judgment: Good Insight: Full Results - Labs Labs: Laboratory Last Values WBC 19.1 K/mcL (4.3-11.1) H 01/02/18 14:08 RBC 4.13 M/mcL (3.82-4.97) 01/02/18 14:08 Hgb 15.9 g/dL (11.5-15.4) H 01/02/18 14:08 Hct 45.9 % (35.3-44.9) H 01/02/18 14:08 MCV 111.1 fL (83.0-100.0) H 01/02/18 14:08 MCH 38.5 pg (28.0-33.3) H 01/02/18 14:08 MCHC 34.6 g/dL (31.6-35.5) 01/02/18 14:08 RDW 16.0 % (11.5-14.5) H 01/02/18 14:08 Plt Count 311 K/mcL (140-400) 01/02/18 14:08 MPV 11.3 fL (9.4-12.4) 01/02/18 14:08 Immature Gran % 0.8 % (0-4) 01/02/18 14:08 Seg Neutrophils % 70.4 % 01/02/18 14:08 Lymphocytes % 17.7 % 01/02/18 14:08 Monocytes % 10.3 % 01/02/18 14:08 Eosinophils % 0.2 % 01/02/18 14:08 Basophils % 0.6 % 01/02/18 14:08 Neutrophils # 13.5 K/mcL (1.6-8.9) H 01/02/18 14:08 Lymphocytes # 3.4 K/mcL (0.6-4.6) 01/02/18 14:08 Monocytes # 2.0 K/mcL (0.0-1.3) H 01/02/18 14:08 Eosinophils # 0.0 K/mcL (0.0-0.6) 01/02/18 14:08 Basophils # 0.1 K/mcL (0.0-0.2) 01/02/18 14:08 Nucleated RBCs/100 WBC 0.1 /100 WBC (0) H 01/02/18 14:08 Platelet Estimate Normal (Normal) 01/02/18 14:08 Anisocytosis 1+ (Not Present) A 01/02/18 14:08 Macrocytosis Present (Not Present) A 01/02/18 14:08 PT 13.1 Seconds (9.4-12.1) H 01/02/18 14:08 INR 1.2 01/02/18 14:08 APTT 26.6 Seconds (26.0-36.0) 01/02/18 14:08 Sodium 135 mEq/L (136-145) L 01/02/18 14:08 Potassium 3.6 mEq/L (3.5-5.1) 01/02/18 14:08 Chloride 98 mEq/L (98-107) 01/02/18 14:08 Carbon Dioxide 29 mEq/L (23-29) 01/02/18 14:08 BUN 8 mg/dL (6-20) 01/02/18 14:08 Creatinine 0.70 mg/dL (0.60-1.20) 01/02/18 14:08 Est GFR ( Amer) > 60 (> 60) 01/02/18 14:08 Est GFR (Non-Af Amer) > 60 (> 60) 01/02/18 14:08 BUN/Creatinine Ratio 11 (6-26) 01/02/18 14:08 Glucose 129 mg/dL (70-105) H 01/02/18 14:08 Calculated Osmolality 280 (280-300) 01/02/18 14:08 Calcium 9.9 mg/dL (8.6-10.3) 01/02/18 14:08 Troponin I 4.25 ng/mL (< 0.04) H* 01/02/18 14:08 - Impressions Impressions Echocardiogram 01/03/18 15:56 Impressions: LVEF 60-65%. Normal LV chamber size, wall thickness and function. Mild left ventricular diastolic dysfunction. Normal right ventricular structure and function. No evidence of pulmonary hypertension. No significant valvular dysfunction. Left Ventricular Wall Motion: Rest Echo Findings All wall segments showed normal motion. Findings: Study Quality * Technically adequate exam. ECG Findings * Normal sinus rhythm. Left Ventricle * LVEF 60-65%. * Normal LV chamber size, wall thickness and function. * Mild left ventricular diastolic dysfunction. Right Ventricle * Normal right ventricular structure and function. Left Atrium * Normal left atrial size. Right Atrium * Normal right atrial size. Aortic Valve * Aortic valve not well visualized. * No aortic regurgitation. * No aortic stenosis. Mitral Valve * Normal mitral valve structure and function. * No mitral regurgitation. * No mitral stenosis. Tricuspid Valve * Normal tricuspid valve structure and function. * Trace tricuspid regurgitation. * No evidence of pulmonary hypertension. Pulmonic Valve * Normal pulmonic valve structure and function. * No pulmonic regurgitation. Aorta * Normally sized aortic root. Pericardium * The pericardium appears normal. IVC * Normal IVC dimensions and inspiratory collapse. Pulmonary Artery * Normal visualized portions of the main pulmonary artery. Consult Discharge Plan - Plan Referrals: Jason Witt MD [Primary Care Provider] -
[2018-01-04] MEDS: *HR* OxyCODONE/APAP 5/325 TABLET PO PRN ×2 (03:25→09:19)
[2018-01-04] MEDS: *HR* Heparin 5,000 UNIT/ML VIAL SQ SCH (06:13)
[2018-01-04 06:29] LABS: Basophils # 0.1 K/mcL (0.0-0.2); Eosinophils # 0.2 K/mcL (0.0-0.6); Eosinophils % 2.1 %; Hematocrit 36.1 % (35.3-44.9); Immature Granulocytes % 0.5 % (0-4); Lymphocytes # 3.7 K/mcL (0.6-4.6); Lymphocytes % 39.2 %; Mean Corpuscular HGB Conc 33.2 g/dL (31.6-35.5); Mean Corpuscular Hemoglobin 37.4 pg (28.0-33.3); Mean Corpuscular Volume 112.5 fL (83.0-100.0); Mean Platelet Volume 11.3 fL (9.4-12.4); Monocytes # 0.7 K/mcL (0.0-1.3); Monocytes % 7.4 %; Neutrophils # 4.7 K/mcL (1.6-8.9); Platelet Count 241 K/mcL (140-400); Red Blood Count 3.21 M/mcL (3.82-4.97); Red Cell Distribution Width 15.9 % (11.5-14.5); Segmented Neutrophils % 49.8 %
[2018-01-04 06:51] LABS: BUN/Creatinine Ratio 14 (6-26); Blood Urea Nitrogen 7 mg/dL (6-20); Calcium 8.6 mg/dL (8.6-10.3); Carbon Dioxide 26 mEq/L (23-29); Chloride 108 mEq/L (98-107); Glucose 89 mg/dL (70-105); Osmolality,Calculated 285 (280-300); Potassium 3.5 mEq/L (3.5-5.1); Sodium 139 mEq/L (136-145); eGFR For African Americans > 60 (> 60); eGFR For Non-African Americans > 60 (> 60)
[2018-01-04] MEDS: Budesonide/Formoterol 160/4.5 MDI IH SCH (08:04)
[2018-01-04] MEDS ORDERED: Aspirin 325 MG TABLET PO SCH (09:00)
[2018-01-04] MEDS: Nicotine 21 MG PATCH.TD24 TD SCH (09:07)
--- NOTE | 2018-01-04 09:24 | Pulmonology Progress Note ---
<JohnpepperLeonel N - Last Filed: 01/04/18 09:46> Date of Encounter: 01/04/18 Time of Encounter: 09:20 Assessment and Plan (1) ST elevation myocardial infarction (STEMI) Status: Ruled-out Patient is status post angiogram STEMI ruled out likely Takotsubo cardiomyopathy Echo showed LVEF of 60-65%, normal LV chamber size, thickness and function, mild left ventricular diastolic dysfunction Her blood pressure readings have ranged from 87/64-119/81 this morning. Patient does not have any symptoms, continue to monitor Qualifiers: Involved coronary artery: other inferior wall coronary artery Qualified Code(s): I21.19 - ST elevation (STEMI) myocardial infarction involving other coronary artery of inferior wall (2) Takotsubo cardiomyopathy Status: Acute Findings during left heart catheterization reportedly consistent with takotsubu cardiomyopathy Echo reveals an LVEF of 60-65% Patient does not complain of any chest pain or dyspnea at this time (3) COPD (chronic obstructive pulmonary disease) with emphysema Status: Chronic 45 year smoking history, patient states she started smoking when she was 12 years old Was recently smoking 2 packs per day Continue Symbicort and DuoNeb's Currently on nicotine patch, encourage smoking cessation Qualifiers: Emphysema type: unspecified Qualified Code(s): J43.9 - Emphysema, unspecified (4) Hypotension Status: Acute Pressures appear to be slightly improved from yesterday with readings around 119 /81 patient is asymptomatic, not on pressors Continue to monitor Qualifiers: Hypotension type: unspecified hypotension type Qualified Code(s): I95.9 - Hypotension, unspecified (5) Anxiety as acute reaction to exceptional stress Status: Acute Psychiatry consulted with the patient Patient is currently on [place]'s wort, per psychiatry drug interactions with antidepressant can occur. Benzodiazepines or hydroxyzine may be used in some cases Patient plans to seek psychiatric counseling after her hospital stay and after she obtains Medicaid They do not believe the patient requires hospitalization at this time Subjective Principal diagnosis: Takotsubo CMP Interval history: Patient seen and examined this morning at bedside. Patient states that she feels well and has no complaints. She has questions regarding her diagnosis and possible future diagnostic and treatment plans that she would like to discuss further with cardiology. She does state that she had one episode of mild reflux after breakfast, but that resolved spontaneously. She is currently denying any chest pain, shortness of breath, or palpitations. She also denies any headaches , fevers, chills, night sweats, abdominal pain, nausea, or vomiting. Objective PUL Vital signs: Last Vital Signs Temp 97.6 F 01/04/18 03:00 Pulse 71 01/04/18 08:00 Resp 16 01/04/18 08:05 BP 102/69 01/04/18 08:00 Pulse Ox 95 01/04/18 08:05 General appearance: no acute distress, other (Sitting upright in bed, appears comfortable) Eyes: nonicteric Neck: supple, other (Carotid endarterectomy scar on right side) Effort: normal Auscultation: bilateral: clear Cardiovascular: regular rate and rhythm, other (Normal S1 and S2 heart sounds, no murmur appreciated.) Gastrointestinal: normoactive bowel sounds, soft, non-tender, non-distended Integumentary: normal Extremities: no cyanosis, no edema Musculoskeletal: no deformities normal mental status, non-focal exam mood appropriate Results - Laboratory Findings CBC and BMP: 01/04/18 05:50 01/04/18 05:50 PT/INR, D-dimer PT 13.1 Seconds (9.4-12.1) H 01/02/18 14:08 Abnormal lab findings: Abnormal lab results RBC 3.21 M/mcL (3.82-4.97) L 01/04/18 05:50 MCV 112.5 fL (83.0-100.0) H 01/04/18 05:50 MCH 37.4 pg (28.0-33.3) H 01/04/18 05:50 RDW 15.9 % (11.5-14.5) H 01/04/18 05:50 Nucleated RBCs/100 WBC 0.1 /100 WBC (0) H 01/02/18 14:08 Anisocytosis 1+ (Not Present) A 01/02/18 14:08 Macrocytosis Present (Not Present) A 01/02/18 14:08 PT 13.1 Seconds (9.4-12.1) H 01/02/18 14:08 Chloride 108 mEq/L (98-107) H 01/04/18 05:50 Creatinine 0.50 mg/dL (0.60-1.20) L 01/04/18 05:50 Troponin I 4.25 ng/mL (< 0.04) H* 01/02/18 14:08 - Clinical Findings Intake & Output: Intake & Output 01/03/18 01/04/18 01/04/18 23:59 07:59 15:59 Intake Total 0 / 0 100 / 100 Output Total 0 / 0 150 / 150 Balance 0 / 0 -50 / -50 Weight 47.6 kg Consult Discharge Plan - Plan Instructions: Chronic Obstructive Pulmonary Disease (DC), Anxiety (DC) Additional Instructions: RISK FACTORS: STOP SMOKING: If you smoke, STOP. Smoking or tobacco use significantly increases your risk of heart disease because nicotine causes the arteries to narrow or constrict. It also causes fats to stick to the artery. Your chances of having a heart attack are greatly increased if you continue to smoke. For more information, call the education line for smoking cessation 3-843-FVWDALI EAT A LOW FAT/CHOLESTEROL/SODIUM DIET: This diet may help reduce your chances of having a heart attack. LIFTING: Avoid lifting anything more than 10 pounds for 5-7 days Prior to straining, laughing, sneezing and/or coughing, apply manual pressure directly over insertion site. ACTIVITY: You may walk or climb stairs as tolerated You can resume sexual activity as tolerated In general, you are encouraged to engage in a minimum of 30 minutes or more of moderate intensity physical activity, such as brisk walking, daily or at least 3 -4 times weekly BATHING Do not submerge the site into water (bath tub, hot tub, swimming pool) for 1 week. This can be a source for infection into the blood stream. You may shower after 24 hours SITE CARE: After 24 hours, you may remove the dressing and leave the site open to air. Keep the site clean and dry. Clean gently and pat dry. You can expect bruising and tenderness that gradually resolve within a week or two. Return to work as instructed per your physician Resume driving as instructed per physician Keep all scheduled follow up appointments Resume medications as instructed IMPORTANT: If prescribed a Platelet Aggregation Inhibitor such as, Plavix, Brilinta or Effient: Duration of therapy is minimum one year These medications are often used in combination with Aspirin in prevention of future heart attacks Never discontinue unless consult with your Manager Women STROKE (CVA) Risk factors for a stroke are: Age, cigarette smoking, diabetes, excessive alcohol consumption, family history, high blood pressure, overweight, physical inactivity, prior stroke, heart attack, diagnosis of carotid artery stenosis or other artery disease. Warning signs: Sudden numbness or weakness of the face, arm or leg; especially on one side of the body, sudden confusion, trouble speaking or understanding, sudden trouble seeing in one or both eyes, sudden trouble walking, dizziness, loss of balance or coordination, sudden severe headache with no cause. Call 911 or go to the Emergency Room. CONGESTIVE HEART FAILURE: If you have been diagnosed with Congestive Heart Failure (CHF) and your symptoms return, make an appointment with your physician Weigh yourself daily. Notify your physician if you have a weight gain of two or more pounds in one day or five or more pounds in one week. If you experience any difficulty breathing, please call 911 BLEEDING: Although the risk of bleeding is minimal, it can happen. If you have any bleeding from the site, apply firm pressure above the puncture site for 10-15 minutes. If the bleeding does not stop, continue manual pressure and call 911 Contact your physician if: You develop a fever greater than 101 degrees Fahrenheit Your site becomes reddened or has any drainage You have an increase in pain or burning at the site or if a large knot forms at the site. If you experience chest pain, shortness of breath, dizziness, or extreme tiredness, stop the activity and rest. Please notify your physicians office if you experience any of these symptoms and they are not relieved by rest please call 911! Referrals: Jason Witt MD [Primary Care Provider] - Prescriptions: Aspirin Enteric Coated [Aspirin EC] 81 mg PO DAILY #30 tablet. Clopidogrel [Plavix] 75 mg PO DAILY #30 tablet Nicotine Patch [Nicoderm] 21 mg TD DAILY #30 patch.td24 Simvastatin [Zocor] 10 mg PO QPM #30 tablet <Jovanny Richards - Last Filed: 01/04/18 16:40> Date of Encounter: 01/04/18 Objective PUL Vital signs: Last Vital Signs Temp 97.2 F L 01/04/18 08:00 Pulse 77 01/04/18 13:00 Resp 14 01/04/18 13:00 BP 99/62 01/04/18 13:00 Pulse Ox 98 01/04/18 13:00 Results - Laboratory Findings CBC and BMP: 01/04/18 05:50 01/04/18 05:50 PT/INR, D-dimer PT 13.1 Seconds (9.4-12.1) H 01/02/18 14:08 Abnormal lab findings: Abnormal lab results RBC 3.21 M/mcL (3.82-4.97) L 01/04/18 05:50 MCV 112.5 fL (83.0-100.0) H 01/04/18 05:50 MCH 37.4 pg (28.0-33.3) H 01/04/18 05:50 RDW 15.9 % (11.5-14.5) H 01/04/18 05:50 Nucleated RBCs/100 WBC 0.1 /100 WBC (0) H 01/02/18 14:08 Anisocytosis 1+ (Not Present) A 01/02/18 14:08 Macrocytosis Present (Not Present) A 01/02/18 14:08 PT 13.1 Seconds (9.4-12.1) H 01/02/18 14:08 Chloride 108 mEq/L (98-107) H 01/04/18 05:50 Creatinine 0.50 mg/dL (0.60-1.20) L 01/04/18 05:50 Troponin I 4.25 ng/mL (< 0.04) H* 01/02/18 14:08 - Clinical Findings Intake & Output: Intake & Output 01/04/18 01/04/18 01/04/18 07:59 15:59 23:59 Intake Total 100 / 100 200 / 200 Output Total 150 / 150 500 / 500 Balance -50 / -50 -300 / -300 - Attending Attestation I examined this patient and my medical decision-making was reviewed with the Resident Physician. I agree with the documented findings, disposition and treatment plan as described except to the extent set forth below. Patient seen and examined. Labs, radiology, chart personally reviewed. Agree with resident's history and physical, assessment, plan with following comments: GLUED WOOD TESTER: Patient follows commands, Pulmonary: Acceptable oxygenation and ventilation. Advised patient to follow- up as outpatient for workup for her COPD. Cardiovascular: stable GI: Nutrition per dietary and GI prophylaxis per routine Heme: DVT prophylaxis per routine Renal; urine out put and renal funtion reviewed Endorcine: blood glucose is monitored Lines: all lines checked and no evidence of infections Skin: skin care to prevent pressure ulcers per nursing routine care
[2018-01-04 13:19] VITALS: BP 99/62
--- NOTE | 2018-01-04 13:21 | Discharge Summary ---
Orders not resulted at time of discharge: Pending orders 01/02/18 16:03 CL Cardiac Catheterization [CL] Routine 01/05/18 04:00 BMP [Basic Metabolic Panel] AM 0400 CBC [Complete Blood Count] [HEME] AM 0400 01/06/18 04:00 BMP [Basic Metabolic Panel] AM 0400 CBC [Complete Blood Count] [HEME] AM 0400 Date of Encounter: 01/04/18 Time of Encounter: 13:20 - Discharge Diagnosis (1) ST elevation myocardial infarction (STEMI) Priority: Primary Status: Ruled-out Qualifiers: Involved coronary artery: other inferior wall coronary artery Qualified Code(s): I21.19 - ST elevation (STEMI) myocardial infarction involving other coronary artery of inferior wall (2) Takotsubo cardiomyopathy Priority: Secondary Status: Ruled-out (3) Hypotension Priority: Secondary Status: Acute Qualifiers: Hypotension type: unspecified hypotension type Qualified Code(s): I95.9 - Hypotension, unspecified - Hospital Course Hospital course: Ms. Stock is a 57 year old female hx tobacco abuse and CVA, presented with chest pain and EKG concerning for STEMI. [facility] with no intervention--STEMI ruled out. Final report pending. Reportedly findings were consistent with Takotsubo CMP. Peak troponin 4.25.Recommend continue DAPT (ASA and Plavix), both home meds. No BB due to hypotension. Right femoral access site healing well. No bleeding, hematoma or ecchymosis noted. TTE resulted--EF preserved 60-65%. No significant findings. Pt has been hypotensive, but asymptomatic. Systolic BP 90s -100s systolic recently. Evaluated by psych for agitation. They recommend outpt follow-up. Rx given for ASA, Plavix, Statin, Nicotine patches. Pt being d/c'd home in stable condition. Will coordinate [facility] follow-up with Dr. Thurman in 3-4 weeks. No events on tele. Time spent discussing smoking cessation with patient: 3 to 10 minutes - Time Spent with Patient Total time spent providing and/or coordinating discharge services: Less than 30 minutes - Discharge Medications Prescriptions: Aspirin Enteric Coated [Aspirin EC] 81 mg PO DAILY #30 tablet. Clopidogrel [Plavix] 75 mg PO DAILY #30 tablet Nicotine Patch [Nicoderm] 21 mg TD DAILY #30 patch.td24 Simvastatin [Zocor] 10 mg PO QPM #30 tablet Home Medications: Cyclobenzaprine [Flexeril] 10 mg PO TID 01/02/18 [History] Montelukast [Singulair] 10 mg PO DAILY 01/02/18 [History] Oxycodone HCl/Acetaminophen [Percocet 5-325 mg Tablet] 1 tab PO Q6H PRN [History] [place]'s Wort 1 tab PO DAILY 01/02/18 [History] Aspirin Enteric Coated [Aspirin EC] 81 mg PO DAILY #30 tablet. 01/04/18 [Rx] Clopidogrel [Plavix] 75 mg PO DAILY #30 tablet 01/04/18 [Rx] Nicotine Patch [Nicoderm] 21 mg TD DAILY #30 patch.td24 01/04/18 [Rx] Simvastatin [Zocor] 10 mg PO QPM #30 tablet 01/04/18 [Rx] Allergies/Adverse Reactions: 3 Allergy/AdvReac Type Severity Reaction Status Date / Time No Known Allergies Allergy Verified 01/02/18 13:01 Date of admission: 01/02/18 14:36 Primary care physician: Jason Witt MD Consults: 01/02/18 16:07 Consult to Psychiatry [CONS] Routine Consulting Provider: Psychiatry [facility] Reason consult: Agitation 01/02/18 16:13 Consult to Critical Care [CONS] Routine Consulting Provider: Pulm Crit Care [facility] Sleep [facility] Reason for Consult: ICU management, copd Call Completed: No 01/03/18 13:00 Consult to Cardiac Rehabilitation-Phase1 [CONS] Routine Comment: Reason for Consult: STEMI/CHF Call Completed: No Discharging clinician: Collin Patton Anticipated date of discharge: 01/04/18 Physical Examination Vital Signs, Last 4 Hours Pulse Resp BP Pulse Ox 01/04/18 13:00 77 14 99/62 98 01/04/18 12:00 107 14 102/61 98 01/04/18 11:00 89 14 100/74 98 01/04/18 10:00 96 14 111/68 98 Vital Signs Temp Pulse Resp BP Pulse Ox 01/04/18 13:00 77 14 99/62 98 01/04/18 12:00 107 14 102/61 98 01/04/18 11:00 89 14 100/74 98 01/04/18 10:00 96 14 111/68 98 01/04/18 09:00 79 14 104/66 95 01/04/18 08:05 16 95 01/04/18 08:00 97.2 F L 71 14 102/69 95 01/04/18 07:00 67 16 119/81 95 01/04/18 06:00 64 16 87/64 97 01/04/18 05:00 67 12 89/52 95 01/04/18 04:00 75 14 87/56 92 01/04/18 03:00 97.6 F 69 14 110/72 99 01/04/18 02:00 70 18 106/77 98 01/04/18 01:00 75 16 103/74 96 01/04/18 00:00 78 16 102/68 96 01/03/18 23:51 98.1 F 01/03/18 23:00 80 16 102/68 99 01/03/18 22:00 85 16 105/73 92 01/03/18 21:26 16 96 01/03/18 21:00 80 18 123/69 97 01/03/18 20:00 98.4 F 77 18 97/63 95 01/03/18 19:00 77 16 89/65 95 01/03/18 18:00 76 15 99/65 92 01/03/18 17:00 96 28 97/69 98 01/03/18 16:00 75 22 89/68 98 01/03/18 15:56 98.1 F 01/03/18 15:00 85 20 94 01/03/18 14:00 91 12 91/60 96 Intake and Output 01/03/18 01/04/18 01/04/18 23:59 07:59 15:59 Intake Total 0 / 0 100 / 100 Output Total 0 / 0 150 / 150 Balance 0 / 0 -50 / -50 Intake: Oral 0 / 0 100 / 100 Output: Urine 0 / 0 150 / 150 Other: Meal Dinner Percent of Meal Consumed 90% # Voids 1 Weight 47.6 kg General: Conversant, No Apparent Distress HEENT: Atraumatic, Normocephaly, Mucus Membranes Moist Neck: No JVD, Normal carotid pulses Cardiac: Reg Rate and Rhythm, Normal S1 and S2, No Murmur Lungs: Normal Breath Sounds, No Wheeze, Rales, Rhonchi Neuro: Alert and responsive, No focal deficits noted Abdomen: Soft, Non-Tender Skin: No rashes noted on visualized skin Musculoskeletal: No Chest Wall Tenderness Extremities: No Clubbing, No Cyanosis, No Edema, Normal Pulses - Patient Status Disposition: Home, Self-Care Condition: Good Functional capacity at discharge: independent ambulation Overall status at discharge: patient is progressing back to baseline - Discharge Instructions Follow Up With: Jason Witt MD [Primary Care Provider] - Additional Instructions: RISK FACTORS: STOP SMOKING: If you smoke, STOP. Smoking or tobacco use significantly increases your risk of heart disease because nicotine causes the arteries to narrow or constrict. It also causes fats to stick to the artery. Your chances of having a heart attack are greatly increased if you continue to smoke. For more information, call the education line for smoking cessation 4-524-XQZSIWR EAT A LOW FAT/CHOLESTEROL/SODIUM DIET: This diet may help reduce your chances of having a heart attack. LIFTING: Avoid lifting anything more than 10 pounds for 5-7 days Prior to straining, laughing, sneezing and/or coughing, apply manual pressure directly over insertion site. ACTIVITY: You may walk or climb stairs as tolerated You can resume sexual activity as tolerated In general, you are encouraged to engage in a minimum of 30 minutes or more of moderate intensity physical activity, such as brisk walking, daily or at least 3 -4 times weekly BATHING Do not submerge the site into water (bath tub, hot tub, swimming pool) for 1 week. This can be a source for infection into the blood stream. You may shower after 24 hours SITE CARE: After 24 hours, you may remove the dressing and leave the site open to air. Keep the site clean and dry. Clean gently and pat dry. You can expect bruising and tenderness that gradually resolve within a week or two. Return to work as instructed per your physician Resume driving as instructed per physician Keep all scheduled follow up appointments Resume medications as instructed IMPORTANT: If prescribed a Platelet Aggregation Inhibitor such as, Plavix, Brilinta or Effient: Duration of therapy is minimum one year These medications are often used in combination with Aspirin in prevention of future heart attacks Never discontinue unless consult with your Claims Adjuster Crop STROKE (CVA) Risk factors for a stroke are: Age, cigarette smoking, diabetes, excessive alcohol consumption, family history, high blood pressure, overweight, physical inactivity, prior stroke, heart attack, diagnosis of carotid artery stenosis or other artery disease. Warning signs: Sudden numbness or weakness of the face, arm or leg; especially on one side of the body, sudden confusion, trouble speaking or understanding, sudden trouble seeing in one or both eyes, sudden trouble walking, dizziness, loss of balance or coordination, sudden severe headache with no cause. Call 911 or go to the Emergency Room. CONGESTIVE HEART FAILURE: If you have been diagnosed with Congestive Heart Failure (CHF) and your symptoms return, make an appointment with your physician Weigh yourself daily. Notify your physician if you have a weight gain of two or more pounds in one day or five or more pounds in one week. If you experience any difficulty breathing, please call 911 BLEEDING: Although the risk of bleeding is minimal, it can happen. If you have any bleeding from the site, apply firm pressure above the puncture site for 10-15 minutes. If the bleeding does not stop, continue manual pressure and call 911 Contact your physician if: You develop a fever greater than 101 degrees Fahrenheit Your site becomes reddened or has any drainage You have an increase in pain or burning at the site or if a large knot forms at the site. If you experience chest pain, shortness of breath, dizziness, or extreme tiredness, stop the activity and rest. Please notify your physicians office if you experience any of these symptoms and they are not relieved by rest please call 911! - Diet and Activity Activity: increase activity as tolerated
--- NOTE | 2018-01-04 14:25 | Electrocardiograph Report ---
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[id number] Requested By: [id number] Order Number: [id number] Reading MD: Siddharth Parra Measurements Intervals [place] Rate: 119 P: 56 CT: 104 QRS: -67 QRSD: 81 T: 29 QT: 293 QTc: 363 Interpretive Statements SINUS TACHYCARDIA WITH SHORT CT INTERVAL POSSIBLE LEFT ATRIAL ENLARGEMENT [-0.1mV P WAVE IN V1/V2] INFERIOR MYOCARDIAL INFARCTION [40+ ms Q WAVE AND/OR ST/T ABNORMALITY IN II/aVF], POSSIBLY ACUTE ANTEROLATERAL MYOCARDIAL INFARCTION [40+ ms Q WAVE IN I/aVL/V3-V6], OF INDETERMINATE AGE ACUTE [place] INTERPRETATION BASED ON A DEFAULT AGE OF 40 YEARS Electronically Signed On 01-04-2018 14:24:14 EDT by Siddharth Parra
--- NOTE | 2018-01-05 09:14 | Electrocardiograph Report ---
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
== END 2018-01-04 13:55 | disposition home or self-care (01) | DRG 287 ==
LOC: EMEROO 13:57 → ICNU 14:36
PROVIDERS: ADMIT Internal Medicine Cardiovascular Disease; ATTEND Internal Medicine Cardiovascular Disease